=== PATIENT | female | born 1980 | race Asian ===

== ENCOUNTER 2021-09-12 18:28 | Emergency (ER) | payer BC, OTHER ==
[~2021-09-12] VITALS: Ht 165.1 cm; Wt 59.9 kg
[2021-09-12] MEDS ORDERED: TETANUS-DIPTH-ACEL PERTUSSIS 0.5ML SYR Tdap IM ONE (19:30)
[2021-09-12 19:44] VITALS: BP 107/42
[2021-09-12] MEDS ORDERED: BACITRACIN TOP OINT 1 UD PKG TOP ONE (21:45)
== END 2021-09-13 00:51 | disposition home or self-care (01) ==
LOC: ER 18:30
DX: S81.852A Open bite, left lower leg, initial encounter (principal); W54.0XXA Bitten by dog, initial encounter; Y93.89 Activity, other specified; Y92.89 Other specified places as the place of occurrence of the external cause; Y99.8 Other external cause status
CPT/HCPCS: 90471; 90715